=== PATIENT | female | born 1950 | race Caucasian/White ===

== ENCOUNTER → 2016-10-10 | Outpatient (CLI) | payer MEDICARE ==
--- NOTE | 2016-10-13 08:00 | MM ---
Reason for exam: screening (asymptomatic). Last mammogram was performed 3 years and 4 months ago. History: Patient is postmenopausal. Took hormonal contraceptives for 15 years beginning at age 20. Took estrogen for 7 years beginning at age 50. Physical Findings: A clinical breast exam by your physician is recommended on an annual basis and results should be correlated with mammographic findings. MG 3D Screening Mammo W/Cad Bilateral CC and MLO view(s) were taken. Prior study comparison: June 06, 2013, bilateral digital screening mammo w/CAD. March 17, 2012, [facility] DIGITAL RIGHT MAMMOGRAM w/CAD. The breast tissue is heterogeneously dense. This may lower the sensitivity of mammography. Finding: There are typically benign calcifications in both breasts. No significant changes in finding since June 06, 2013 and March 17, 2012. ASSESSMENT: Benign, BI-RAD 2 RECOMMENDATION: Routine screening mammogram of both breasts in 1 year.
== END | disposition home or self-care (01) ==
LOC: RADMAMWWP 12:53
PROVIDERS: ATTEND Family Medicine
DX: Z12.31 Encounter for screening mammogram for malignant neoplasm of breast (principal)
CPT/HCPCS: 77063; G0202

== ENCOUNTER → 2017-07-14 | Outpatient (CLI) | payer MEDICARE ==
--- NOTE | 2017-07-14 22:42 | BD ---
EXAMINATION TYPE: MG DEXA axial skeleton. DATE OF EXAM: 07/14/2017 COMPARISON: NONE CLINICAL HISTORY: 66-year-old female postmenopausal screening, osteoporosis Height: 62.7 IN Weight: 156 LBS FRAX RISK QUESTIONS: Alcohol (3 or more units per day): NO Family History (Parent hip fracture): NO Glucocorticoids (More than 3mos): NO (Ex: prednisone, prednisolone, methylprednisolone, dexamethasone, and hydrocortisone). History of Fracture in Adulthood: NO Secondary Osteoporosis: 1. Type 1 Diabetes: NO 2. Hyperthyroidism: NO 3. Menopause before 45: NO 4. Malnutrition: NO 5. Chronic liver disease: NO Rheumatoid Arthritis: NO Current Tobacco Use: NO RISK FACTORS HISTORY OF: Active: YES Postmenopausal woman: AGE 51 Take estrogen and/or progesterone medications: NOT NOW How long: TOOK ERT FROM AGE 51 - 53 MEDICATIONS: Additional Medications: CALCIUM, VIT D, ATENOLOL, ISOSORBIDE, LISINOPRIL, GABAPENTIN, ATORVASTATIN, C ITALOPRAM, LOW DOSE ASPIRIN, AREDS, EYE VITAMIN, FISH OIL, EXAM MEASUREMENTS: Bone mineral densitometry was performed using the [employer] System. Bone mineral density as measured about the Lumbar spine is: ----- L1-L4(G/cm2): 1.004 T Score Values are as follows: ----- L2: -1.6 ----- L3: -1.9 ----- L4: -0.4 ----- L1-L4: -1.5 Bone mineral density BASELINE Bone mineral density about the R hip (g/cm2): 0.649 Bone mineral density about the L hip (g/cm2): 0.741 T Score values are as follows: -----R Neck: -2.8 -----L Neck: -2.1 -----R Total: -2.1 -----L Total: -1.6 Bone mineral density BASELINE IMPRESSION: Osteoporosis (T Score less than -2.5). There is increased fracture risk and therapy is usually indicated based on age. Re-Screen 1-2 years. NOTE: T-SCORE=SD OF THE YOUNG ADULT MEAN.
== END | disposition home or self-care (01) ==
LOC: RADBDWWP 08:21
PROVIDERS: ATTEND Family Medicine
DX: M81.0 Age-related osteoporosis without current pathological fracture (principal)
CPT/HCPCS: 77080

== ENCOUNTER → 2017-12-10 | Outpatient (CLI) | payer MEDICARE ==
--- NOTE | 2017-12-10 15:41 | US ---
EXAMINATION TYPE: US kidneys/renal and bladder DATE OF EXAM: 12/10/2017 COMPARISON: NONE CLINICAL HISTORY: Hematuria R31.2. EXAM MEASUREMENTS: Right Kidney: 9.2 x 3.8 x 3.8 cm Left Kidney: 9.8 x 4.9 x 4.8 cm Post Void Residual Volume: 0.69 mL rt liver cysts 1.8 x 1.9 x 1.3 cm, 1.8 x 1.5 x1.6 cm rt inferior Right Kidney: No hydronephrosis or masses seen Left Kidney: large cyst 6.0 x 4.9 x 6.3 cm Bladder: wnl Bilateral Jets seen: Yes Normal Post Void Residual: Yes There is no evidence for hydronephrosis at this point in time. No nephrolithiasis is seen. No jacquie s are identified. The urinary bladder is poorly distended and left suboptimally evaluated. Bilatera l ureteral jets are seen. Technologist burgos a few simple appearing thin-walled cysts scattered throughout heterogeneous hypere choic probable diffuse fatty infiltrated liver. There is a large partially exophytic cyst from lower pole level left kidney IMPRESSION: No suspicious finding seen to account for patient's symptoms of hematuria. If symptoms persists furth er investigation with CT urogram would be advised.
== END | disposition home or self-care (01) ==
LOC: RADUSWWP 14:42
PROVIDERS: ATTEND Family Medicine
DX: R31.29 Other microscopic hematuria (principal)
CPT/HCPCS: 76770

== ENCOUNTER 2018-12-17 15:28 | Emergency (ER) | payer MEDICARE ==
[2018-12-17 15:37] VITALS: RESP 16; TEMP 98.1
--- NOTE | 2018-12-17 15:44 | ED ---
General Adult HPI - General Chief complaint: Syncope Stated complaint: Near Syncope Time Seen by Provider: 12/17/18 15:30 Source: patient, RN notes reviewed Mode of arrival: EMS Limitations: no limitations - History of Present Illness Initial comments: This is a 68-year-old female presents emergency Department after having had a diaphoretic and dizziness spell at home. Patient bent over and stay bent over for a while and then when she stood up she was nauseated so she went over and sat down and became very diaphoretic and felt a little lightheaded at that time. Patient denies any chest pain palpitations or difficulty breathing patient currently states she has no symptoms at all per patient denies any recent fever chills. Patient denies any abdominal pain. Patient denies any nausea vomiting diarrhea per patient states she had some good breakfast as well as some water. Patient states she hasn't had any lower extremityswellingor any calf tenderness - Related Data Home Medications Medication Instructions Recorded Confirmed Aspirin EC [Ecotrin Low Dose] 81 mg PO DAILY 12/17/18 12/17/18 Atorvastatin [Lipitor] 40 mg PO DAILY 12/17/18 12/17/18 Biotin 2,500 mcg PO DAILY 12/17/18 12/17/18 Calcium Carbonate [Calcium] 600 mg PO BID 12/17/18 12/17/18 Cholecalciferol (Vitamin D3) 2,000 unit PO DAILY 12/17/18 12/17/18 [Vitamin D3] Citalopram Hydrobromide [CeleXA] 40 mg PO DAILY 12/17/18 12/17/18 Ezetimibe [Zetia] 10 mg PO DAILY 12/17/18 12/17/18 Fluticasone Nasal [place] [Flonase 2 spr EA NOSTRIL DAILY 12/17/18 12/17/18 Nasal [place]] Gabapentin [Neurontin] 300 mg PO TID 12/17/18 12/17/18 Isosorbide Mononitrate ER [Imdur] 30 mg PO DAILY 12/17/18 12/17/18 Lisinopril [Zestril] 10 mg PO DAILY 12/17/18 12/17/18 Nitroglycerin Sl Tabs [Nitrostat] 0.4 mg SUBLINGUAL Q5M PRN 12/17/18 12/17/18 Salley-3 935mg 1 cap PO DAILY 12/17/18 12/17/18 Vit C/E/Zn/Coppr/Lutein/Zeaxan 1 cap PO BID 12/17/18 12/17/18 [Preservision Areds 2 Softgel] Allergies Allergy/AdvReac Type Severity Reaction Status Date / Time Penicillins Allergy Rash/Hives Verified 12/17/18 15:51 Review of Systems ROS Statement: Those systems with pertinent positive or pertinent negative responses have been documented in the HPI. ROS Other: All systems not noted in ROS Statement are negative. Past Medical History Past Medical History: Osteoarthritis (OA) Additional Past Medical History / Comment(s): aneurysm History of Any Multi-Drug Resistant Organisms: None Reported Past Surgical History: Orthopedic Surgery Additional Past Surgical History / Comment(s): L hand, L foot, Smoking Status: Never smoker Past Alcohol Use History: None Reported Past Drug Use History: Marijuana General Exam - General Exam Comments Initial Comments: GENERAL: Patient is well-developed and well-nourished. Patient is nontoxic and well-hyd rated and is in no acute distress. ENT: Neck is soft and supple. No significant lymphadenopathy is noted. Oropharynx is clear. Moist mucous membranes. Neck has full range of motion without elicit ing any pain. EYES: The sclera were anicteric and conjunctiva were pink and moist. Extraocular mo vements were intact and pupils were equal round and reactive to light. Eyelids were unremarkable. PULMONARY: Unlabored respirations. Good breath sounds bilaterally. No audible rales rhonchi or wheezing was noted. CARDIOVASCULAR: There is a regular rate and rhythm without any murmurs gallops or rubs. ABDOMEN: Soft and nontender with normal bowel sounds. No palpable organomegaly was noted. There is no palpable pulsatile mass. SKIN: Skin is clear with no lesions or rashes and otherwise unremarkable. NEUROLOGIC: Patient is alert and oriented x3. Cranial nerves II through XII are grossly intact. Motor and sensory are also intact. Normal speech, volume and content. Symmetrical smile. MUSCULOSKELETAL: Normal extremities with adequate strength and full range of motion. LYMPHATICS: No significant lymphadenopathy is noted PSYCHIATRIC: Normal psychiatric evaluation. Limitations: no limitations Course Vital Signs 12/17/18 12/17/18 15:29 15:40 Temperature 98.1 F Pulse Rate 80 Respiratory 16 Rate Blood Pressure 120/72 Blood Pressure 120/72 [Left Arm Sitting] Blood Pressure 109/74 [Left Arm Standing] Blood Pressure 97/69 [Left Arm Supine] O2 Sat by Pulse 97 Oximetry Medical Decision Making - Medical Decision Making EKG shows sinus rhythm with occasional PVC at [address] interval is 182 QRS is 8 6 QT interval is 418 QTC is 491. Patient's EKG shows no ST segment elevation or depression. CT shows no acute normalities. Patient had a liter of fluid while in the emergency department. Patient was able to ambulate emergency department not having any other symptoms. Patient states she has not passed bent over leg she did today and has had similar symptoms not as significant as today but similar. Patient states she feels fine and would like to be discharged home. - Lab Data Result diagrams: 12/17/18 15:50 12/17/18 15:50 Lab Results 12/17/18 12/17/18 12/17/18 Range/Units 15:50 15:50 15:50 WBC 10.1 (3.8-10.6) k/uL RBC 4.60 (3.80-5.40) m/uL Hgb 13.3 (11.4-16.0) gm/dL Hct 40.6 (34.0-46.0) % MCV 88.4 (80.0-100.0) fL MCH 28.8 (25.0-35.0) pg MCHC 32.6 (31.0-37.0) g/dL RDW 14.6 (11.5-15.5) % Plt Count 188 (150-450) k/uL Neutrophils % 61 % Lymphocytes % 30 % Monocytes % 5 % Eosinophils % 2 % Basophils % 1 % Neutrophils # 6.1 (1.3-7.7) k/uL Lymphocytes # 3.1 (1.0-4.8) k/uL Monocytes # 0.5 (0-1.0) k/uL Eosinophils # 0.2 (0-0.7) k/uL Basophils # 0.1 (0-0.2) k/uL PT 10.5 (9.0-12.0) sec INR 1.0 (<1.2) APTT 21.8 L (22.0-30.0) sec Sodium 140 (137-145) mmol/L Potassium 4.4 (3.5-5.1) mmol/L Chloride 105 (98-107) mmol/L Carbon Dioxide 27 (22-30) mmol/L Anion Gap 8 mmol/L BUN 16 (7-17) mg/dL Creatinine 0.92 (0.52-1.04) mg/dL Est GFR (CKD-EPI)AfAm 74 (>60 ml/min/1.73 sqM) Est GFR (CKD-EPI)NonAf 64 (>60 ml/min/1.73 sqM) Glucose 113 H (74-99) mg/dL Calcium 9.4 (8.4-10.2) mg/dL Magnesium 1.8 (1.6-2.3) mg/dL Total Bilirubin 0.6 (0.2-1.3) mg/dL AST 27 (14-36) U/L ALT 28 (9-52) U/L Alkaline Phosphatase 76 (38-126) U/L Troponin I (0.000-0.034) ng/mL Total Protein 6.4 (6.3-8.2) g/dL Albumin 4.2 (3.5-5.0) g/dL 12/17/18 Range/Units 15:50 WBC (3.8-10.6) k/uL RBC (3.80-5.40) m/uL Hgb (11.4-16.0) gm/dL Hct (34.0-46.0) % MCV (80.0-100.0) fL MCH (25.0-35.0) pg MCHC (31.0-37.0) g/dL RDW (11.5-15.5) % Plt Count (150-450) k/uL Neutrophils % % Lymphocytes % % Monocytes % % Eosinophils % % Basophils % % Neutrophils # (1.3-7.7) k/uL Lymphocytes # (1.0-4.8) k/uL Monocytes # (0-1.0) k/uL Eosinophils # (0-0.7) k/uL Basophils # (0-0.2) k/uL PT (9.0-12.0) sec INR (<1.2) APTT (22.0-30.0) sec Sodium (137-145) mmol/L Potassium (3.5-5.1) mmol/L Chloride (98-107) mmol/L Carbon Dioxide (22-30) mmol/L Anion Gap mmol/L BUN (7-17) mg/dL Creatinine (0.52-1.04) mg/dL Est GFR (CKD-EPI)AfAm (>60 ml/min/1.73 sqM) Est GFR (CKD-EPI)NonAf (>60 ml/min/1.73 sqM) Glucose (74-99) mg/dL Calcium (8.4-10.2) mg/dL Magnesium (1.6-2.3) mg/dL Total Bilirubin (0.2-1.3) mg/dL AST (14-36) U/L ALT (9-52) U/L Alkaline Phosphatase (38-126) U/L Troponin I <0.012 (0.000-0.034) ng/mL Total Protein (6.3-8.2) g/dL Albumin (3.5-5.0) g/dL Disposition Clinical Impression: Orthostatic dizziness Disposition: HOME SELF-CARE Condition: Good Instructions (If sedation given, give patient instructions): Hypotension (ED), Syncope (ED) Is patient prescribed a controlled substance at d/c from ED?: No Referrals: Alvarado Thompson DO [Primary Care Provider] - 1-2 days Time of Disposition: 17:33
[2018-12-17 16:11] LABS: Albumin 4.2 g/dL (3.5-5.0); Calcium 9.4 mg/dL (8.4-10.2); Magnesium 1.8 mg/dL (1.6-2.3); Potassium 4.4 mmol/L (3.5-5.1); Total Bilirubin 0.6 mg/dL (0.2-1.3); Total Protein 6.4 g/dL (6.3-8.2)
[2018-12-17 16:16] LABS: Prothrombin Time 10.5 sec (9.0-12.0)
[2018-12-17 16:30] LABS: Basophils # (A) 0.1 k/uL (0-0.2); Basophils % (A) 1 %; Eosinophils # (A) 0.2 k/uL (0-0.7); Eosinophils % (A) 2 %; HCT 40.6 % (34.0-46.0); HGB 13.3 gm/dL (11.4-16.0); Lymphocytes # (A) 3.1 k/uL (1.0-4.8); Lymphocytes % (A) 30 %; MCH 28.8 pg (25.0-35.0); MCHC 32.6 g/dL (31.0-37.0); MCV 88.4 fL (80.0-100.0); Mean Platelet Volume 8.3; Monocytes # (A) 0.5 k/uL (0-1.0); Monocytes % (A) 5 %; Neutrophils # (A) 6.1 k/uL (1.3-7.7); Neutrophils % (A) 61 %; Partial Thromboplastin Time 21.8 sec (22.0-30.0); Platelet Count 188 k/uL (150-450); RDW 14.6 % (11.5-15.5); WBC 10.1 k/uL (3.8-10.6)
--- NOTE | 2018-12-17 16:53 | XR ---
EXAMINATION TYPE: XR chest 2V DATE OF EXAM: 12/17/2018 COMPARISON: NONE HISTORY: Chest pain TECHNIQUE: Frontal and lateral views of the chest are obtained. FINDINGS: There is no focal air space opacity, pleural effusion, or pneumothorax seen. The cardiac silhouette size is within normal limits. The osseous structures are intact. There are overlying car diac leads. There is eventration of right hemidiaphragm. Prominent lung volumes could be indicative o f underlying COPD. IMPRESSION: No acute cardiopulmonary process.
[2018-12-17 17:45] VITALS: BP 101/66; PULSE 74
== END 2018-12-17 17:59 | disposition home or self-care (01) ==
LOC: EC 15:28
DX: R42 Dizziness and giddiness (principal); I49.3 Ventricular premature depolarization; M19.90 Unspecified osteoarthritis, unspecified site; Z88.0 Allergy status to penicillin; Z79.51 Long term (current) use of inhaled steroids; Z79.82 Long term (current) use of aspirin; Z79.899 Other long term (current) drug therapy
CPT/HCPCS: 36415; 71046; 80053; 83735; 84484; 85025; 85610; 85730; 93005; 99284

== ENCOUNTER → 2019-01-05 | Outpatient (CLI) | payer MEDICARE ==
--- NOTE | 2019-01-05 15:40 | MR ---
EXAMINATION TYPE: MR angio head wo con DATE OF EXAM: 01/05/2019 COMPARISON: MRA dated 02/19/2015 HISTORY: Cerebral aneurysm, nonruptured TECHNIQUE: Time of flight images focusing on the [place] of [place] were performed without contrast.. 2-D and 3-D postprocessing imaging is performed. FINDINGS: The basilar artery is enlarged measuring 5 mm, greater than 4.5 cm qualifies for dolichoect dylan. The vertebral arteries are codominant. Vertebrobasilar system does appear patent. The posterior cerebral arteries originate from the basilar artery appropriately and are unremarkable. Small regional planner ior communicating arteries are seen however the intercommunicating artery is not seen and therefore c ircle of [place] remains incomplete. There are 2 right anterior cerebral artery and a dominant left an terior cerebral artery, normal variant. The cervical portions of the internal carotid arteries appear patent with minimal nonhemodynamically significant stenosis of the right supraclinoid portion of the internal carotid artery. No hemodynamically significant stenosis is seen in the major intracranial v asculature nor focal aneurysmal outpouching. Unchanged prominent infundibulum of the origin of the le ft superior cerebellar artery in comparison to thousand 5. IMPRESSION: 1. 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 2. Stable prominent infundibulum of the origin of the left superior cerebellar artery.
== END ==
LOC: RADMRIMAIN 12:39
PROVIDERS: ATTEND Psychiatry & Neurology Neurology
DX: G45.0 Vertebro-basilar artery syndrome (principal)
CPT/HCPCS: 70544

== ENCOUNTER → 2019-01-05 | Outpatient (CLI) | payer MEDICARE ==
--- NOTE | 2019-01-06 13:27 | MM ---
Reason for exam: screening (asymptomatic). Last mammogram was performed 2 years and 3 months ago. History: Patient is postmenopausal. Took hormonal contraceptives for 15 years beginning at age 20. Took estrogen for 7 years beginning at age 50. Physical Findings: A clinical breast exam by your physician is recommended on an annual basis and results should be correlated with mammographic findings. MG 3D Screening Mammo W/Cad Bilateral CC and MLO view(s) were taken. Prior study comparison: October 10, 2016, bilateral MG 3d screening mammo w/cad. June 06, 2013, bilateral digital screening mammo w/CAD. The breast tissue is heterogeneously dense. This may lower the sensitivity of mammography. Stable benign calcifications. There is no discrete abnormality. No significant changes when compared with prior studies. ASSESSMENT: Benign, BI-RAD 2 RECOMMENDATION: Routine screening mammogram of both breasts in 1 year.
== END | disposition home or self-care (01) ==
LOC: RADMAMWWP 12:09
PROVIDERS: ATTEND Family Medicine
DX: Z12.31 Encounter for screening mammogram for malignant neoplasm of breast (principal)
CPT/HCPCS: 77063; 77067

== ENCOUNTER → 2019-10-27 | Outpatient (CLI) | payer MEDICARE ==
--- NOTE | 2019-10-27 13:37 | BD ---
EXAMINATION TYPE: Axial Bone Density DATE OF EXAM: 10/27/2019 COMPARISON: 07.14.2017 CLINICAL HISTORY: 69 YR OLD FEMALE.....ICD-10 CODE: M81.0 AGE RELATED OSTEOPOROSIS Height: 62 Weight: 155 FRAX RISK QUESTIONS: Glucocorticoids (More than 3mos): YES (Ex: prednisone, prednisolone, methylprednisolone, dexamethasone, and hydrocortisone). History of Fracture in Adulthood: YES RISK FACTORS HISTORY OF: HX OF RT ANKLE FX LAST YR AT AGE 68 Active: YES Postmenopausal woman: YES, ABOUT AGE 52 YRS OLD Take estrogen and/or progesterone medications: IN PAST FOR ABOUT 2 YRS, NONE NOW Hyperparathyroidism: NO Adrenal Insufficiency: NO MEDICATIONS: Prednisone or other steroids: YES, ALBUTEROL AND STEROIDAL INHALERS FOR COPD How Long: FOR 6 MONTHS Osteoporosis Medications: YES, FOR ONLY 3 MOS, NOT NOW, FOSAMAX Additional Medications: BP MEDS, CELEXA, REFLUX MEDS, CHOLESTEROL MEDS, CALCIUM AND VIT D Additional History: CHOLESTEROL, REFLUX OSTEOPOROSIS, OSTEOARTHRITIS, EXAM MEASUREMENTS: Bone mineral densitometry was performed using the [employer] System. Bone mineral density as measured about the Lumbar spine is: ----- L1-L4(G/cm2): 1.090 T Score Values are as follows: ----- L1: -1.6 ----- L2: -1.5 ----- L3: -1.1 ----- L4: 0.7 ----- L1-L4: -0.7 Bone mineral density has: Increased 8.0% since study of: 07.14.2017 Bone mineral density about the R hip (g/cm2): 0.759 Bone mineral density about the L hip (g/cm2): 0.804 T Score values are as follows: -----R Neck: -2.7 -----L Neck: -2.2 -----R Total: -2.0 -----L Total: -1.6 Bone mineral density has: Increased 1.2% since study of: 07.14.2017 FRAX%s: THERE IS A 37.5% CHANCE FOR A MAJOR OSTEOPOROTIC FX AND A 12.3% FOR HIP.....PROBABILITY FOR FX IN 10 YRS TIME IMPRESSION: Osteoporosis Right femoral neck NOTE: T-SCORE=SD OF THE YOUNG ADULT MEAN.
== END | disposition home or self-care (01) ==
LOC: RADBDWWP 12:26
PROVIDERS: ATTEND Family Medicine
DX: M81.0 Age-related osteoporosis without current pathological fracture (principal)
CPT/HCPCS: 77080

== ENCOUNTER → 2020-08-21 | Outpatient (CLI) | payer MEDICARE ==
--- NOTE | 2020-08-21 22:39 | MR ---
EXAMINATION TYPE: MR angio head wo con DATE OF EXAM: 08/21/2020 COMPARISON: MRA brain January 05, 2019 HISTORY: Follow up comparison for non-ruptured cerebral aneurysm. TECHNIQUE: Time of flight images focusing on the [place] of [place] were performed without contrast.. 2-D and 3-D postprocessing imaging is performed on independent workstation and reviewed. FINDINGS: Stable codominant vertebrobasilar system patent to the basilar junction. Prominent patent b asilar artery redemonstrated at origin. Tortuous course to the posterior circulation redemonstrated. Small caliber but patent bilateral posterior communicating arteries. No significant focal stenosis or aneurysmal change. Persistent two small caliber anterior cerebral arteries with patent anterior communicating artery and larger dominant left anterior cerebral artery. No significant focal stenosis or aneurysmal change in the anterior circulation. IMPRESSION: Stable focal prominence or dolichoectasia of the proximal basilar artery. New aneurysm or significant stenosis. No significant change from prior.
== END | disposition home or self-care (01) ==
LOC: RADMRIMAIN 15:53
PROVIDERS: ATTEND Psychiatry & Neurology Neurology
DX: I67.1 Cerebral aneurysm, nonruptured (principal)
CPT/HCPCS: 70544

== ENCOUNTER → 2021-01-02 | Outpatient (CLI) | payer MEDICARE ==
--- NOTE | 2021-01-03 11:00 | MM ---
Reason for exam: screening (asymptomatic). Last mammogram was performed 2 years ago. History: Patient is postmenopausal. Took hormonal contraceptives for 15 years beginning at age 20. Took estrogen for 7 years beginning at age 50. Physical Findings: A clinical breast exam by your physician is recommended on an annual basis and results should be correlated with mammographic findings. MG 3D Screening Mammo W/Cad Bilateral CC and MLO view(s) were taken. Prior study comparison: January 05, 2019, bilateral MG 3d screening mammo w/cad. October 10, 2016, bilateral MG 3d screening mammo w/cad. The breast tissue is heterogeneously dense. This may lower the sensitivity of mammography. There are benign appearing round dystrophic calcifications bilaterally. There is no discrete abnormality. ASSESSMENT: Benign, BI-RAD 2 RECOMMENDATION: Routine screening mammogram of both breasts in 1 year.
== END | disposition home or self-care (01) ==
LOC: RADMAMWWP 10:12
PROVIDERS: ATTEND Family Medicine
DX: Z12.31 Encounter for screening mammogram for malignant neoplasm of breast (principal)
CPT/HCPCS: 77063; 77067

== ENCOUNTER → 2021-10-01 | Outpatient (CLI) | payer MEDICARE ==
--- NOTE | 2021-10-01 13:19 | MR ---
EXAMINATION TYPE: MR knee RT wo con DATE OF EXAM: 10/01/2021 COMPARISON: Outside radiographs 09/12/2019 oh HISTORY: 70-year-old female M25.561, Right knee pain and painful kneecap since 2021, history of surgery. TECHNIQUE: Multiplanar, multisequence imaging of the right knee is performed without IV contrast. FINDINGS: The ACL and PCL are intact. MCL is intact. LCL complex is intact. Mild soft tissue edema deep to the distal iliotibial band. There is a diminutive body and posterior horn of the medial meniscus. Mild irregular cartilage loss w ithin the mid peripheral aspect of the medial compartment and mild degenerative spurring. Lateral meniscus is intact. Lateral compartment articular cartilage volume is maintained. Moderate irregular cartilage loss along the lateral trochlear facet. Extensor mechanism is intact. Inhomogeneous signal is present at the insertional fibers. Quadriceps a nd proximal patellar tendon as well. Small knee joint effusion without any sizable Roblero's cyst. Trace fluid extends here. Mild fluid along the pes anserinus tendons. Additional fluid seen extending along the popliteus tendon sheath. Mild edema lateral head gastrocnemius. Irregular low signal intensity lesion within the intramedullary space of the distal femoral metaphysi s. Some Marlene ink artifact is present, this could represent a chondroid lesion or focus of old bone i nfarct. No soft tissue component or cortical erosion. Normal popliteal artery anatomy. Mild generalized muscle volume loss. No suspicious bone marrow repla cement. IMPRESSION: 1. Diminutive body and posterior horn of the medial meniscus. Correlate for history of prior partial medial meniscectomy. 2. Mild degenerative change of the medial compartment. More moderate thickness cartilage loss along t he lateral patellar facet within the patellofemoral compartment. 3. Mild proximal patellar tendinosis and mild insertional quadriceps tendinosis. 4. Some soft tissue edema deep to the distal iliotibial band could represent a friction syndrome. Cli nically correlate for any localizing symptoms here. 5. Either a chondroid lesion or old bone infarct within the distal femoral metaphysis. No aggressive features seen at this time.
== END | disposition home or self-care (01) ==
LOC: RADMRIMAIN 10:30
PROVIDERS: ATTEND Orthopaedic Surgery
DX: M25.561 Pain in right knee (principal)

== ENCOUNTER 2021-12-12 09:50 | Day surgery (SDC) | payer MEDICARE ==
[2021-12-09 14:11] VITALS: BMI 27.1
--- NOTE | 2021-12-12 08:34 | HP ---
HISTORY AND PHYSICAL DATE OF SURGERY: 12/12/2021 Zahida Thomas is a 71-year-old patient seen with progressive right knee pain. Options for treatment were discussed. She elected to proceed with right knee arthroscopy. Consent was obtained. PAST MEDICAL HISTORY: Hypertension, hyperlipidemia, asthma. PAST SURGICAL HISTORY: Excision of soft tissue mass in forearm and wrist, knee arthroscopy. DAILY MEDICATIONS: Albuterol inhaler, aspirin, atorvastatin, metoprolol, omeprazole, Spiriva. ALLERGIES: None. SOCIAL HISTORY: She denies tobacco use. PHYSICAL EVALUATION OF THE RIGHT KNEE: Range of motion is 0 to 130. Mild effusion. Tenderness along the medial and lateral joint lines. Positive medial Alvaro's. Ligaments stable. Hip rotation without pain. Distal neurovascular exam is intact. RADIOGRAPHS: Radiographs of the right knee reveal some osteoarthritic changes. MRI of right knee revealed abnormal signal in the medial meniscus, effusion, osteoarthritic changes. IMPRESSION: 1. Internal derangement of right knee with medial meniscal tear. 2. Hypertension. 3. Hyperlipidemia. 4. Asthma. PLAN: Right knee arthroscopy with partial medial meniscectomy and debridement. MMODL / IJN: [id number] /
[~2021-12-12 09:50] MED LIST: DEXAMETHASONE SOD PHOSPHATE 4 MG/ML 1 ML VIAL IV ONE; HYDROmorphone 0.5 MG/0.5 ML SYRINGE IVP PRN; LACTATED RINGERS 1,000 ML IV SCH; LIDOCAINE 1% (10MG/ML) FOR IV START INTRADERMA PRN; ONDANSETRON 4 MG/2 ML VIAL IVP PRN
[2021-12-12] MEDS ORDERED: KETOROLAC 15 MG/ML 1 ML VIAL ONE (12:07)
[2021-12-12] MEDS ORDERED: MIDAZOLAM 2 MG/2 ML VIAL ONE (12:07)
[2021-12-12] MEDS ORDERED: PHENYLEPHRINE-0.9% NACL SYG 1,000 MCG/10 ML SYRINGE ONE (12:07)
[2021-12-12] MEDS ORDERED: fentaNYL (PF) 50 MCG/ML 2 ML AMP ONE (12:07)
[2021-12-12] MEDS ORDERED: LIDOCAINE 2% INJ 20 MG/ML (2 ML VIAL) ONE (12:07)
[2021-12-12] MEDS ORDERED: PROPOFOL 10 MG/ML 20 ML VIAL IV ONE (12:07)
[2021-12-12] MEDS ORDERED: BUPIVACAIN-EPI 0.25%-1:200,000 30 ML VIAL INTRAARTIC ONE (12:08)
[2021-12-12 12:56] VITALS: RESP 16; TEMP 96.8
--- NOTE | 2021-12-12 12:57 | P.OP ---
Date of Procedure: 12/12/21 Preoperative Diagnosis: Internal derangement right knee Postoperative Diagnosis: 1. Tear medial and lateral meniscus right knee 2. Grade 2 chondromalacia medial femoral condyle right knee 3. Reactive synovitis medial, lateral and suprapatellar compartments right knee Procedure(s) Performed: 1. Arthroscopic partial medial and lateral meniscectomy right knee 2. Arthroscopic chondroplasty medial femoral condyle right knee 3. Arthroscopic partial synovectomy medial, lateral and suprapatellar compartments right knee Anesthesia: BAOA, local Surgeon: Jose C Shannon Estimated Blood Loss (ml): 7 Pathology: none sent Condition: stable Disposition: PACU Indications for Procedure: 71-year-old patient seen with progressive right knee pain. After treatment options were discussed, she elected to proceed with arthroscopy. Operative Findings: See description of procedure Description of Procedure: Patient was taken to the operative suite. Patient underwent a general anesthetic by the department of anesthesia. Patient was given preoperative antibiotics. The right lower extremity was placed in a well-padded arthroscopic leg lloyd. The right leg was prepped and draped in the normal sterile orthopedic fashion. A lateral parapatellar and suprapatellar incision was made. Trochars were inserted. Arthroscopy was initiated. Suprapatellar pouch revealed diffuse thick reactive synovitis. The patellofemoral joint appeared to articulate congruently. There was grade 1 chondromalacia of the patellofemoral joint with no osteochondral tears present.. The scope was guided into the medial gutter. No loose bodies or plica were identified. The scope was then guided into the medial compartment. A medial parapatellar incision was made. Trocar inserted followed by probe. There was a complex tear involving the posterior horn and midbody area of the medial meniscus. There were grade 2 chondromalacia changes of medial femoral condyle with osteochondral flap tear present. There was some thick reactive some-itis anteriorly. I performed a partial medial meniscectomy getting down to stable meniscal tissue. I performed a chondroplasty of the medial femoral condyle getting down to stable osteochondral tissue. I performed a partial synovectomy decompressing the reactive/anteriorly. The residual meniscus was stable. The residual osteochondral surface appears stable. There was good decompression of the synovitis. Scope and probe were then guided into the intercondylar notch. Cruciates were identified, probed and found to be stable. The scope and probe were then guided into lateral compartment. There was a radial tear anterior horn lateral meniscus. There was some thick reactive synovitis anteriorly. There was no chondromalacia. I performed a partial lateral meniscectomy getting down to stable meniscal tissue. I performed a partial synovectomy. The residual meniscus was stable. The residual osteochondral surface was stable. The scope was in guided back into the suprapatellar compartment. I introduced a motorized shaver into the suprapatellar compartment. I debrided some piecemeal fragments of meniscus I encountered. I performed a partial synovectomy. The shaver was now removed. There was good decompression of the synovitis. I took one more look around the entire knee, no residual debris. Instruments were now removed from the joint. The joint was infiltrated with .25% Marcaine. Steri- Strips were applied to the portal sites. Sterile dressings were applied. The patient was placed into a BIA hose. No tourniquet was utilized. The patient was awakened, transferred to a bed and taken to recovery stable satisfactory condition.
[2021-12-12 14:33] VITALS: BP 129/81; PULSE 69
== END 2021-12-12 14:36 | disposition home or self-care (01) ==
LOC: OR 09:50
PROVIDERS: ATTEND Orthopaedic Surgery
DX: M23.203 Derangement of unspecified medial meniscus due to old tear or injury, right knee (principal); M23.200 Derangement of unspecified lateral meniscus due to old tear or injury, right knee; I10 Essential (primary) hypertension; E78.5 Hyperlipidemia, unspecified; J44.9 Chronic obstructive pulmonary disease, unspecified; K21.9 Gastro-esophageal reflux disease without esophagitis; J45.909 Unspecified asthma, uncomplicated; Z98.890 Other specified postprocedural states; Z79.82 Long term (current) use of aspirin; Z79.899 Other long term (current) drug therapy; Z88.5 Allergy status to narcotic agent; Z88.0 Allergy status to penicillin
CPT/HCPCS: 29880; J2250; J1100; J2405; J0690; J3010; J1885; J2370; J2704; J1170; J2001

== ENCOUNTER → 2022-01-08 | Outpatient (CLI) | payer MEDICARE ==
--- NOTE | 2022-01-10 07:54 | XR ---
EXAMINATION TYPE: XR thoracic spine complete DATE OF EXAM: 01/08/2022 CLINICAL HISTORY: pain TECHNIQUE: Frontal, lateral, and swimmer's view of thoracic spine are obtained. COMPARISON: None. FINDINGS: Thoracic spine show satisfactory alignment without evidence of acute fracture or dislocatio n. Vertebral body heights are preserved. Mild curvature convex to the right. A moderate multilevel d egenerative disc space narrowing and spondylosis. Visualized ribs are unremarkable. IMPRESSION: No acute fracture or dislocation is seen in the thoracic spine. ICD 10 NO FRACTURE, INIT IAL EVALUATION
== END | disposition home or self-care (01) ==
LOC: RADXRMAIN 13:25
PROVIDERS: ATTEND Family Medicine
DX: M54.6 Pain in thoracic spine (principal)
CPT/HCPCS: 72072

== ENCOUNTER → 2022-01-08 | Outpatient (CLI) | payer MEDICARE ==
--- NOTE | 2022-01-09 19:23 | BD ---
EXAMINATION TYPE: Axial Bone Density DATE OF EXAM: 01/08/2022 CLINICAL HISTORY: 71 year old Female. ICD-10 CODE: M81.0 AGE RELATED OSTEOPOROSIS Height: 63 Weight: 154.8 FRAX RISK QUESTIONS: Alcohol (3 or more units per day): no Family History (Parent hip fracture): no Glucocorticoids (More than 3mos): no (Ex: prednisone, prednisolone, methylprednisolone, dexamethasone, and hydrocortisone). History of Fracture in Adulthood:yes Secondary Osteoporosis: 1. Type 1 Diabetes: no 2. Hyperthyroidism: no 3. Menopause before 45: no 4. Malnutrition: no 5. Chronic liver disease: no Rheumatoid Arthritis: no Current Tobacco Use: no RISK FACTORS HISTORY OF: Surgery to Spine/Hip(right/left)/Wrist (right/left): no Family History of Osteoporosis: no Active: yes Diet low in dairy products/other sources of calcium: yes Postmenopausal woman: yes Lost more than 2 inches in height since high school: no MEDICATIONS: Additional History: EXAM MEASUREMENTS: Bone mineral densitometry was performed using the [employer]. Bone mineral density as measured about the Lumbar spine is: ----- L1-L4(G/cm2): 1.012 T Score Values are as follows: ----- L1: -2.1 ----- L2: -1.3 ----- L3: -1.9 ----- L4: -0.6 ----- L1-L4: -1.4 Bone mineral density has: increased 0.5 % since study of: 07.14.2017 Bone mineral density about the R hip (g/cm2): 0.628 Bone mineral density about the L hip (g/cm2): 0.731 T Score values are as follows: -----R Neck: -3.0 -----L Neck: -2.2 -----R Total: -2.3 -----L Total: -1.7 Bone mineral density has: decreased -2.2% since study of: 07.14.2017 FRAX%s: The graph provided illustrates a 28.4% chance for a major osteoporotic fx and a 9.4% chance f or the hips probability for fx in 10 years time. IMPRESSION: Osteoporosis (T Score less than -2.5). There is increased fracture risk and therapy is usually indicated based on age. Re-Screen 1-2 years. NOTE: T-SCORE=SD OF THE YOUNG ADULT MEAN.
== END | disposition home or self-care (01) ==
LOC: RADBDWWP 12:49
PROVIDERS: ATTEND Family Medicine
DX: M81.0 Age-related osteoporosis without current pathological fracture (principal)
CPT/HCPCS: 77080

== ENCOUNTER → 2022-02-06 | Outpatient (CLI) | payer MEDICARE ==
--- NOTE | 2022-02-06 13:41 | MR ---
EXAMINATION TYPE: MR cervical spine wo con DATE OF EXAM: 02/06/2022 COMPARISON: None HISTORY: Neck pain with crunching sounds x6 months TECHNIQUE: Multiplanar, multisequence images of the cervical spine were acquired without contrast. FINDINGS: Cervical segments are intact. No spinal listhesis. Slight reversal of normal cervical lordosis. Cervi boby spinal cord is of normal signal. Craniovertebral junction relationships are within normal limits . Multilevel disc desiccation. C2-C3: No disc bulge/herniation or protrusion. No Canal stenosis. Foramina are patent bilaterally. C3-C4: No disc bulge/herniation or protrusion. No Canal stenosis. Foramina are patent bilaterally. C4-C5: No disc bulge/herniation or protrusion. No Canal stenosis. Uncovertebral joint hypertrophy wi th mild left neural foraminal stenosis. The right neural foramen is patent. C5-C6: No disc bulge/herniation or protrusion. No Canal stenosis. Uncovertebral and facet joint hype rtrophy with moderate left neural foraminal stenosis. The right neural foramen is patent. C6-C7: No disc bulge/herniation or protrusion. No Canal stenosis. Uncovertebral and facet joint hype rtrophy with moderate bilateral foraminal stenosis. C7-T1: No disc bulge/herniation or protrusion. No Canal stenosis. Foramina are patent bilaterally. IMPRESSION: 1. No disc herniation or central significant central canal stenosis. 2. Multilevel degenerative disc disease as described above.
== END | disposition home or self-care (01) ==
LOC: RADMRIMAIN 12:21
PROVIDERS: ATTEND Psychiatry & Neurology Neurology
DX: M50.30 Other cervical disc degeneration, unspecified cervical region (principal)
CPT/HCPCS: 72141

== ENCOUNTER → 2022-04-18 | Outpatient (CLI) | payer MEDICARE ==
--- NOTE | 2022-04-19 09:14 | MR ---
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 TECHNIQUE: Multi planar, multi sequence imaging was performed through the brain including: T1, T2, In version recovery, susceptibility weighted imaging and gradient echo imaging and Diffusion weighted im aging. The patient was then given intravenous contrast and multi planar, T1 fat-saturation images wer e obtained. IV Contrast: 7 cc of Gadavist FINDINGS: The ace-white junctions, ventricular system, basal cisterns appear unremarkable. Diffusion-weighted imaging shows no evidence of restricted diffusion to suggest acute/subacute infarct. Intracranial art erial flow voids are maintained. Midline structures show no abnormality. Scattered foci of high T2 si gnal intensity are seen within the periventricular white matter. The susceptibility weighted images d o not reveal any evidence for micro-hemorrhage. After administration of gadolinium, no abnormal enhan cement is seen. Dolichoectasia of the basilar artery measuring similarly at 5 mm. Limited evaluation for aneurysm mahajan s not demonstrate any new aneurysms on today's exam. The bone marrow signal is within normal limits. Paranasal sinuses and mastoid air cells: Mild scattered paranasal sinus disease. Visualized orbits: Orbital contents are intact. IMPRESSION: 1. No evidence of intracranial mass, acute/subacute infarct, or abnormal enhancement. 2. Nonspecific white matter changes, likely related to small vessel ischemic disease 3. Stable Dolichoectasia of the basilar artery. 4. No new aneurysm identified.
== END | disposition home or self-care (01) ==
LOC: RADMRIMAIN 10:15
PROVIDERS: ATTEND Psychiatry & Neurology Neurology
DX: I67.1 Cerebral aneurysm, nonruptured (principal); G45.0 Vertebro-basilar artery syndrome; R90.82 White matter disease, unspecified; R20.2 Paresthesia of skin; R51.9 Headache, unspecified; R29.2 Abnormal reflex; R53.1 Weakness
CPT/HCPCS: 70553; A9585

== ENCOUNTER → 2022-05-01 | Outpatient (CLI) | payer MEDICARE ==
--- NOTE | 2022-05-01 16:22 | US ---
EXAMINATION TYPE: US carotid duplex BILAT DATE OF EXAM: 05/01/2022 COMPARISON: NONE CLINICAL HISTORY: R42 Dizziness R51.9 Headache M54.2 Cervicalgia. neck pain TECHNIQUE: Carotid duplex ultrasound examination. Indirect Doppler criteria was utilized. FINDINGS: EXAM MEASUREMENTS: RIGHT: Peak Systolic Velocity (PSV) cm/sec ----- Right CCA: 63.4 ----- Right ICA: 91 ----- Right ECA: 93.9 ICA/CCA ratio: 1.4 RIGHT: End Diastole cm/sec ----- Right CCA: 21.2 ----- Right ICA: 35.7 ----- Right ECA: 8.1 LEFT: Peak Systolic Velocity (PSV) cm/sec ----- Left CCA: 69.2 ----- Left ICA: 91 ----- Left ECA: 70.6 ICA/CCA ratio: 1.3 LEFT: End Diastole cm/sec ----- Left CCA: 21.2 ----- Left ICA: 38.7 ----- Left ECA: 0 VERTEBRALS (direction of flow): Right Vertebral: Antegrade Left Vertebral: Antegrade Rhythm: Normal INCOME TAX MANAGER NOTES: No significant stenosis seen Minimal plaquing is present. IMPRESSION: 1. No significant flow-limiting stenosis by velocity Criteria for Assigning % of Stenosis / Diameter reduction (Estimation based on the indirect measurements of the internal carotid artery velocities (ICA PSV). 1. Normal (no stenosis)=ICA PSV < 125 cm/s: ratio < 2.0: ICA EDV<40 cm/s. 2. Less than 50% stenosis=ICA PSV < 125 cm/s: ratio < 2.0: ICA EDV<40 cm/s. 3. 50 to 69% stenosis=ICA PSV of 125 to 230 cm/s: ration 2.0 ? 4.0: ICA EDV 40-100 cm/s. 4. Greater than 70% stenosis to near occlusion= ICA PSV > 230 cm/s: ratio > 4.0: ICA EDV > 100 cm/s. 5. Near occlusion= ICA PSV velocities may be low or undetectable: variable ratio and ICA EDV. 6. Total occlusion=unable to detect flow.
== END | disposition home or self-care (01) ==
LOC: RADUSWWP 13:02
PROVIDERS: ATTEND Family Medicine
DX: R42 Dizziness and giddiness (principal); R51.9 Headache, unspecified; M54.2 Cervicalgia
CPT/HCPCS: 93880

== ENCOUNTER → 2023-09-11 | Outpatient (CLI) | payer MEDICARE ==
--- NOTE | 2023-09-14 15:04 | MM ---
Reason for Exam: Screening (asymptomatic). Last mammogram was performed 2 year(s) and 8 month(s) ago. Patient History: Menarche at age 14. First Full-Term at age 18. Postmenopausal. Estrogen for 7 years from age 50 until age 57. Hormonal Contraceptives for 15 years from age 20 until age 35. Risk Values: [place] 5 year model risk: 1.2%. NCI Lifetime model risk: 3.0%. Prior Study Comparison: 10/10/2016 Bilateral Screening Mammogram, [facility]. 01/05/2019 Bilateral Screening Mammogram, [facility]. 01/02/2021 Bilateral Screening Mammogram, [facility]. Tissue Density: There are scattered areas of fibroglandular density. Findings: Analyzed By CAD. Right breast: There is no suspicious group of microcalcifications or new suspicious mass. Benign-appearing calcifications right breast. Left breast: There is no suspicious group of microcalcifications or new suspicious mass. Benign-appearing calcifications left breast. Overall Assessment: Benign, BI-RAD 2 Management: Screening Mammogram of both breasts in [address] [facility] will attempt to contact patient to return for supplemental views and ultrasound if indicated. Patient should continue monthly self-breast exams. A clinical breast exam by your physician is recommended on an annual basis. This exam should not preclude additional follow-up of suspicious palpable abnormalities. Note on Kamilah scores and lifetime risk: 1. A Kamilah score greater than 3% is considered moderate risk. If this is the case, consider specialist referral to assess eligibility for a risk reducing agent. 2. If overall lifetime risk for the development of breast cancer is 20% or higher, the patient may qualify for future screening with alternating mammogram and breast MRI. Electronically signed and approved by: Prosper Perez DO
== END | disposition home or self-care (01) ==
LOC: RADMAMWWP 09:54
PROVIDERS: ATTEND Family Medicine
DX: Z12.31 Encounter for screening mammogram for malignant neoplasm of breast (principal); Z78.0 Asymptomatic menopausal state
CPT/HCPCS: 77063; 77067

== ENCOUNTER → 2024-03-17 | Outpatient (CLI) | payer MEDICARE ==
--- NOTE | 2024-03-20 18:21 | MR ---
EXAMINATION TYPE: MRI left foot without IV contrast DATE OF EXAM: 03/17/2024 COMPARISON: None HISTORY: Palpable lump on left foot, at base of first toe. Standard multiplanar, multisequence MRI departmental protocol Multiplanar, multisequence images of the left foot were acquired without contrast. Diffusion weighted imaging was performed. FINDINGS: Negative for acute fracture or marrow replacement. Moderate osteoarthritis at the first MTP joint including chondral loss, marginal osteophytes and subc ortical cysts. Severe degenerative changes of the sesamoid bones also noted. Bipartite medial hallux sesamoid. Small first MTP joint effusion. Moderate hallux valgus. No discrete soft tissue mass. Musculature is within normal limits. Mild/moderate tenosynovitis involving the peroneus longus tendon as well as at the knot of James. Sca ttered soft tissue edema about the midfoot, greatest along the plantar aspect. IMPRESSION: 1. No discrete mass. If there is persistent clinical concern, consider contrast-enhanced MRI. 2. Moderate first MTP joint osteoarthritis with hallux valgus deformity. Severe arthritic changes of the first metatarsal sesamoid joints. 3. Incidental findings as above. [facility], Workstation: [id number], 03/20/2024 6:19 PM
== END | disposition home or self-care (01) ==
LOC: RADMRIMAIN 11:23
PROVIDERS: ATTEND Podiatrist Foot & Ankle Surgery
DX: M19.272 Secondary osteoarthritis, left ankle and foot (principal); M79.89 Other specified soft tissue disorders; M19.072 Primary osteoarthritis, left ankle and foot

== ENCOUNTER 2024-03-18 15:46 | Observation (INO) | payer MEDICARE ==
--- NOTE | 2024-03-18 17:44 | XR ---
EXAMINATION TYPE: XR Hip RT and AP Pelvis DATE OF EXAM: 03/18/2024 4:52 PM COMPARISON: None. CLINICAL INDICATION: Female, 73 years old with history of fall, TECHNIQUE: 2 view(s) obtained. AP pelvis FINDINGS: Femoral heads articulate with the acetabulum. Joint spaces are preserved. Symphysis pubis and sacroil iac joints are normal. Right femoral head articulates with the acetabulum. Joint space is preserved. No acute fracture or di slocation evident. IMPRESSION: 1. No acute osseous abnormality right hip [facility], , 03/18/2024 5:42 PM
--- NOTE | 2024-03-18 18:17 | ED ---
Lower Extremity Injury HPI - General Chief Complaint: Extremity Injury, Lower Stated Complaint: Hip injury, Fall Time Seen by Provider: 03/18/24 16:10 Source: patient Mode of arrival: ambulatory Limitations: no limitations - History of Present Illness Initial Comments: 73-year-old female presenting with chief complaint of right hip pain. Patient slipped on her deck earlier today and fell onto her right hip. No head injury, loss of consciousness, or use of blood thinners. Patient has good range of motion still but with certain movements has increased pain. She also has increased pain with weightbearing. She has history of osteoporosis. No numbne ss or tingling. - Related Data Home Medications Medication Instructions Recorded Confirmed Aspirin EC [Ecotrin Low Dose] 81 mg PO DAILY 12/17/18 12/12/21 Atorvastatin [Lipitor] 40 mg PO DAILY 12/17/18 12/12/21 Biotin [Biotin Disolve] 2,500 mcg PO DAILY 12/17/18 12/12/21 Calcium Carbonate [Calcium] 600 mg PO BID 12/17/18 12/12/21 Cholecalciferol (Vitamin D3) 2,000 unit PO DAILY 12/17/18 12/12/21 [Vitamin D3] Citalopram Hydrobromide [CeleXA] 40 mg PO DAILY 12/17/18 12/12/21 Ezetimibe [Zetia] 10 mg PO DAILY 12/17/18 12/12/21 Fluticasone Nasal [place] [Flonase 2 spr EA NOSTRIL DAILY 12/17/18 12/12/21 Nasal [place]] Gabapentin [Neurontin] 300 mg PO TID 12/17/18 12/12/21 Isosorbide Mononitrate ER [Imdur] 30 mg PO DAILY 12/17/18 12/12/21 Nitroglycerin Sl Tabs [Nitrostat] 0.4 mg SUBLINGUAL Q5M PRN 12/17/18 12/12/21 [place]-3 935mg 1 cap PO DAILY 12/17/18 12/12/21 Vit C/E/Zn/Coppr/Lutein/Zeaxan 1 cap PO BID 12/17/18 12/12/21 [Preservision Areds 2 Softgel] Metoprolol Succinate (ER) [Toprol 25 mg PO DAILY 12/09/21 12/12/21 Xl] Albuterol Sulfate [Proair 1 puff INHALATION Q6H PRN 12/10/21 12/12/21 Respiclick] Tiotropium 18 Mcg/Puff [Spiriva] 2 puff INHALATION DAILY 12/10/21 12/12/21 Previous Rx's Medication Instructions Recorded traMADol HCl [Ultram] 50 mg PO Q6H PRN #15 tab 12/12/21 Allergies Allergy/AdvReac Type Severity Reaction Status Date / Time acetaminophen [From Percocet] Allergy ITCHING Verified 03/18/24 15:53 AND NAUSEA hydrocodone [From [place]] Allergy Itching Verified 03/18/24 15:53 oxycodone [From Percocet] Allergy ITCHING Verified 03/18/24 15:53 AND NAUSEA Penicillins Allergy Rash/Hives Verified 03/18/24 15:53 codeine AdvReac Nausea & Verified 03/18/24 15:53 Vomiting Review of Systems ROS Statement: Those systems with pertinent positive or pertinent negative responses have been documented in the HPI. ROS Other: All systems not noted in ROS Statement are negative. Past Medical History Past Medical History: COPD, Osteoarthritis (OA) Additional Past Medical History / Comment(s): aneurysm History of Any Multi-Drug Resistant Organisms: None Reported Past Surgical History: Orthopedic Surgery Additional Past Surgical History / Comment(s): L hand, L foot, Past Psychological History: No Psychological Hx Reported Smoking Status: Former smoker Past Alcohol Use History: None Reported Past Drug Use History: Marijuana General Exam Limitations: no limitations General appearance: alert, in no apparent distress Head exam: Present: atraumatic, normocephalic, normal inspection Eye exam: Present: normal appearance, EOMI Neck exam: Present: normal inspection. Absent: meningismus Respiratory exam: Absent: respiratory distress Cardiovascular Exam: Present: regular rate Right Hip exam: Present: normal inspection, full ROM, tenderness Neurovascular tendon exam: Present: no vascular compromise Neurological exam: Present: alert, oriented X3 Psychiatric exam: Present: normal affect, normal mood Skin exam: Present: warm, dry Course Vital Signs 03/18/24 03/18/24 03/18/24 15:51 18:01 21:53 Temperature 98.3 F 98 F 98.0 F Pulse Rate 74 70 73 Respiratory 20 16 16 Rate Blood Pressure 153/91 133/74 123/72 O2 Sat by Pulse 96 97 97 Oximetry Medical Decision Making - Medical Decision Making Was pt. sent in by a medical professional or institution (, [facility]O, LINEN CHECKER, urgent care, hospital, or [place] health care facility...) When possible be specific @ -No Did you speak to anyone other than the patient for history (EMS, parent, family, police, friend...)? What history was obtained from this source @ -No Did you review nursing and triage notes (agree or disagree)? Why? @ -I reviewed and agree with nursing and triage notes Were old charts reviewed (outside hosp., previous admission, EMS record, old EKG, old radiological studies, urgent care reports/EKG's, [place] health care facility records)? Report findings @ -No old charts were reviewed Differential Diagnosis (chest pain, altered mental status, abdominal pain women, abdominal pain men, vaginal bleeding, weakness, fever, dyspnea, syncope, headache, dizziness, GI bleed, back pain, seizure, CVA, palpatations, mental health, musculoskeletal)? @ -Differential Musculoskeletal Muscular strain, contusion, ligament sprain, fracture, arthritis, septic arthritis, bursitis, cellulitis, muscle spasm, nerve compression, DVT, arterial occlusion, herpes zoster, electrolyte abnormality, tumor.... This is not meant to be in all inclusive list EKG interpreted by me (3pts min.). @ -As above X-rays interpreted by me (1pt min.). @ -X-ray shows no acute osseous abnormality of the right hip CT interpreted by me (1pt min.). @ -CT shows anterior right acetabular fracture essentially nondisplaced U/S interpreted by me (1pt. min.). @ -None done What testing was considered but not performed or refused? (CT, X-rays, U/S, labs)? Why? @ -None What meds were considered but not given or refused? Why? @ -None Did you discuss the management of the patient with other professionals (professionals i.e. , NIKKO, LINEN CHECKER, lab, RT, psych nurse, social professionals, campus security officer, teacher, fire information officer, caseworker protective services)? Give summary @ -Spoke with Dr. Shannon who states that the patient should be admitted under medicine as this is not a surgical case My attending Dr. Busby spoke with [facility] who accepts [facility] Was smoking cessation discussed for >3mins.? @ -No Was critical care preformed (if so, how long)? @ -No Were there social determinants of health that impacted care today? How? (Homelessness, low income, unemployed, alcoholism, drug addiction, transportation, low edu. Level, literacy, decrease access to med. care, long-term, rehab)? @ -No Was there de-escalation of care discussed even if they declined (Discuss DNR or withdrawal of care, Hospice)? DNR status @ -No What co-morbidities impacted this encounter? (DM, HTN, Smoking, COPD, CAD, Cancer, CVA, ARF, Chemo, Hep., AIDS, mental health diagnosis, sleep apnea, morbid obesity)? @ -None Was patient admitted / discharged? Hospital course, mention meds given and route, prescriptions, significant lab abnormalities, going to OR and other pertinent info. @ -73-year-old female presenting for evaluation after a fall onto the right hip today. No head injury. Initial x-rays negative for acute osseous process. Patient is unable to ambulate. CT was obtained which shows right anterior acetabular fracture. Patient still cannot ambulate, she states that she lives with her who is an alcoholic and cannot help take care of her. Patient will be admitted due to inability to ambulate. She is agreeable with this plan. I discussed this case with my attending Dr. Busby Undiagnosed new problem with uncertain prognosis? @ -No Drug Therapy requiring intensive monitoring for toxicity (Heparin, Nitro, Insulin, Cardizem)? @ -No Were any procedures done? @ -No Diagnosis/symptom? @ -Acetabular fracture Acute, or Chronic, or Acute on Chronic? @ -Acute Uncomplicated (without systemic symptoms) or Complicated (systemic symptoms)? @ -Complicated Side effects of treatment? @ -No Exacerbation, Progression, or Severe Exacerbation? @ -No Poses a threat to life or bodily function? How? (Chest pain, [place], [place], pneumonia, PE, COPD, DKA, ARF, appy, cholecystitis, CVA, Diverticulitis, Homicidal, Suicidal, threat to staff... and all critical care pts) @ -Yes, patient cannot function at this time and would be unsafe at home - Lab Data Result diagrams: 03/18/24 21:54 03/18/24 21:54 Disposition Clinical Impression: Acetabular fracture Disposition: ADMITTED IP TO THIS HOSP Condition: Fair Is patient prescribed a controlled substance at d/c from ED?: No Time of Disposition: 20:51
[2024-03-18] MEDS: IBUPROFEN 400 MG TAB PO STA (18:53)
[2024-03-18] MEDS: MORPHINE SULFATE 4 MG/ML SYRINGE IM STA (19:15)
[2024-03-18] MEDS: ONDANSETRON ODT 4 MG TAB PO STA (19:15)
--- NOTE | 2024-03-18 19:43 | CT ---
EXAMINATION TYPE: CT right hip DATE OF EXAM: 03/18/2024 6:41 PM COMPARISON: None. CLINICAL INDICATION: Female, 48 years old with history of headache, hx brain cancer, headache, hx bra in [place] Lung cancer screening, History of tobacco use. TECHNIQUE: Contrast used: mL of , (none if empty) Oral contrast used: (none if empty) FINDINGS: Axial images were obtained at 3 mm thick sections. Femoral head articulates with the acetabulum. The femur appears intact. Femoral neck is intact. Femoral head articulates with the acetabulum. Visualized In the sagittal plane there is an anterior acetabular fracture. This is essentially nondis placed. This extends towards the lateral aeration fascial ramus. No additional fractures evident. Three-D reconstructed images are reviewed. IMPRESSION: 1. ANTERIOR RIGHT ACETABULAR FRACTURE ESSENTIALLY NONDISPLACED. [facility], , 03/18/2024 7:41 PM
[2024-03-18] MEDS ORDERED: NALOXONE 0.4 MG/ML 1 ML VIAL IV PRN (20:51)
[2024-03-18 22:20] LABS: Basophils # (A) 0.1 k/uL (0-0.2); Basophils % (A) 0 %; Eosinophils # (A) 0.1 k/uL (0-0.7); Eosinophils % (A) 0 %; HCT 41.6 % (34.0-46.0); HGB 13.4 gm/dL (11.4-16.0); Lymphocytes % (A) 21 %; MCHC 32.2 g/dL (31.0-37.0); MCV 90.1 fL (80.0-100.0); Monocytes # (A) 0.9 k/uL (0-1.0); Monocytes % (A) 6 %; Neutrophils # (A) 10.2 k/uL (1.3-7.7); Neutrophils % (A) 71 %; Platelet Count 159 k/uL (150-450); RBC 4.62 m/uL (3.80-5.40); RDW 13.5 % (11.5-15.5); WBC 14.4 k/uL (3.8-10.6)
--- NOTE | 2024-03-18 22:22 | P.HPIM ---
History of Present Illness H&P Date: 03/18/24 Chief Complaint: Fall, hip pain History of present illness; Very pleasant 73-year-old female with COPD, not maintained on home O2, hypertension, hyperlipidemia, depression and osteoarthritis. Presents to the emergency department following a fall. Patient states that she was at home when she slipped on a wet, wooden walkway and fell on her right hip. Patient states that at that time she noted some tenderness and pain at the anterior right hip. Upon seeing the patient at the bedside she is currently resting comfortably, endorsing no pain at this time. Imaging: -Hip/pelvis x-ray showed no acute osseous abnormality of the right hip -Hip CT showed anterior right acetabular fracture essentially nondisplaced Vitals: -Blood pressure 133/74, heart rate 70, respiratory rate 16, SpO2 97% on room air Patient admitted to internal medicine service REVIEW OF SYSTEMS: CONSTITUTIONAL: No fever, no malaise, no fatigue. HEENT: No recent visual problems or hearing problems. Denied any sore throat. CARDIOVASCULAR: No chest pain, orthopnea, PND, no palpitations, no syncope. PULMONARY: No shortness of breath, no cough, no hemoptysis. GASTROINTESTINAL: No diarrhea, no nausea, no vomiting, no abdominal pain. NEUROLOGICAL: No headaches, no weakness, no numbness. HEMATOLOGICAL: Denies any bleeding or petechiae. GENITOURINARY: Denies any burning micturition, frequency, or urgency. MUSCULOSKELETAL/RHEUMATOLOGICAL: Denies any joint pain, swelling, or any muscle pain. ENDOCRINE: Denies any polyuria or polydipsia. The rest of the 14-point review of systems is negative. PHYSICAL EXAMINATION: GENERAL: The patient is alert and oriented x3, not in any acute distress. Well developed, well nourished. HEENT: No conjunctival pallor. Normocephalic, atraumatic. No pharyngeal erythema. No thyromegaly. CARDIOVASCULAR: S1 and S2 present. No murmurs, rubs, or gallops. PULMONARY: Chest is clear to auscultation, no wheezing or crackles. ABDOMEN: Soft, nontender, nondistended, normoactive bowel sounds. No palpable organomegaly. MUSCULOSKELETAL: No joint swelling or deformity. No bruising noted on the right hip, no tenderness to palpation at the time of examination. EXTREMITIES: No cyanosis, clubbing, or pedal edema. NEUROLOGICAL: Gross neurological examination did not reveal any focal deficits. SKIN: No rashes. Assessment and plan 73-year-old female with COPD and osteoarthritis presents to the emergency department following a fall. Patient is noted to have right acetabular fracture essentially nondisplaced noted on hip CT. Patient admitted to the internal medicine service. #Right acetabular fracture essentially nondisplaced -Hip/pelvis x-ray showed no acute osseous abnormality of the right hip -Hip CT showed anterior right acetabular fracture essentially nondisplaced -Patient given 4 mg IM morphine once in the emergency department -Continue with 4 mg IV morphine every 4 hours as needed -Motrin 400 mg once in the emergency department -Continue with 400 mg Motrin Q6H as needed -Orthopedic surgery consulted #COPD, not maintained on home O2 -Resume home Spiriva supplemental oxygen as needed #Hypertension -Resume home Toprol Xl 25 mg daily and Imdur 30 mg daily once verified by pharmacy #Hyperlipidemia -Resume home Ezetimibe 10 mg daily -Resume home Lipitor 40 mg daily #Depression -Resume home Celexa 40 mg daily CODE STATUS: Full code GI prohylaxis: Protonix 40 mg daily DVT prophylaxis: heparin sc 5000 units tid Dictation was produced using [employer] dictation software. please excuse any grammatical, word or spelling errors. Past Medical History Past Medical History: COPD, Osteoarthritis (OA) Additional Past Medical History / Comment(s): aneurysm History of Any Multi-Drug Resistant Organisms: None Reported Past Surgical History: Orthopedic Surgery Additional Past Surgical History / Comment(s): L hand, L foot, Past Psychological History: No Psychological Hx Reported Smoking Status: Former smoker Past Alcohol Use History: None Reported Past Drug Use History: Marijuana Medications and Allergies Home Medications Medication Instructions Recorded Confirmed Type Aspirin EC [Ecotrin Low Dose] 81 mg PO DAILY 12/17/18 12/12/21 History Atorvastatin [Lipitor] 40 mg PO DAILY 12/17/18 12/12/21 History Biotin [Biotin Disolve] 2,500 mcg PO DAILY 12/17/18 12/12/21 History Calcium Carbonate [Calcium] 600 mg PO BID 12/17/18 12/12/21 History Cholecalciferol (Vitamin D3) 2,000 unit PO DAILY 12/17/18 12/12/21 History [Vitamin D3] Citalopram Hydrobromide [CeleXA] 40 mg PO DAILY 12/17/18 12/12/21 History Ezetimibe [Zetia] 10 mg PO DAILY 12/17/18 12/12/21 History Fluticasone Nasal [place] [Flonase 2 spr EA NOSTRIL DAILY 12/17/18 12/12/21 History Nasal [place]] Gabapentin [Neurontin] 300 mg PO TID 12/17/18 12/12/21 History Isosorbide Mononitrate ER [Imdur] 30 mg PO DAILY 12/17/18 12/12/21 History Nitroglycerin Sl Tabs [Nitrostat] 0.4 mg SUBLINGUAL Q5M PRN 12/17/18 12/12/21 History Brandon-3 935mg 1 cap PO DAILY 12/17/18 12/12/21 History Vit C/E/Zn/Coppr/Lutein/Zeaxan 1 cap PO BID 12/17/18 12/12/21 History [Preservision Areds 2 Softgel] Metoprolol Succinate (ER) [Toprol 25 mg PO DAILY 12/09/21 12/12/21 History Xl] Albuterol Sulfate [Proair 1 puff INHALATION Q6H PRN 12/10/21 12/12/21 History Respiclick] Tiotropium 18 Mcg/Puff [Spiriva] 2 puff INHALATION DAILY 12/10/21 12/12/21 History traMADol HCl [Ultram] 50 mg PO Q6H PRN #15 tab 12/12/21 Rx Allergies Allergy/AdvReac Type Severity Reaction Status Date / Time acetaminophen [From Percocet] Allergy ITCHING Verified 03/18/24 15:53 AND NAUSEA hydrocodone [From [place]] Allergy Itching Verified 03/18/24 15:53 oxycodone [From Percocet] Allergy ITCHING Verified 03/18/24 15:53 AND NAUSEA Penicillins Allergy Rash/Hives Verified 03/18/24 15:53 codeine AdvReac Nausea & Verified 03/18/24 15:53 Vomiting Physical Exam Vitals: Vital Signs Temp Pulse Resp BP Pulse Ox 03/18/24 18:01 98 F 70 16 133/74 97 03/18/24 15:51 98.3 F 74 20 153/91 96 Intake and Output 03/18/24 03/18/2424 06:59 14:59 22:59 Other: Weight 70.307 kg Results CBC & Chem 7: 03/18/24 21:54 03/18/24 21:54 Assessment and Plan Assessment: I have seen and evaluated the patient today. I Discussed the case with the resident and agree with the resident's findings I edited the assessment and plan as necessary as documented in the resident's note.
[2024-03-18 22:30] LABS: ALT 31 U/L (4-34); African American GFR (CKD) >90 (>60 ml/min/1.73 sqM); Anion Gap 6 mmol/L; Blood Urea Nitrogen 14 mg/dL (7-17); Calcium 9.1 mg/dL (8.4-10.2); Carbon Dioxide 22 mmol/L (22-30); Chloride 109 mmol/L (98-107); Glucose 94 mg/dL (74-99); Non-African American GFR(CKD) 82 (>60 ml/min/1.73 sqM); Sodium 137 mmol/L (137-145); Total Bilirubin 1.6 mg/dL (0.2-1.3)
[2024-03-18 22:41] LABS: AST 46 U/L (14-36); Albumin 4.2 g/dL (3.5-5.0); Alkaline Phosphatase 48 U/L (38-126); Potassium 4.9 mmol/L (3.5-5.1); Total Protein 6.4 g/dL (6.3-8.2)
[2024-03-19] MEDS: MORPHINE SULFATE 4 MG/ML SYRINGE IV PRN (01:38)
[2024-03-19] MEDS: EZETIMIBE 10 MG TAB PO SCH (07:43)
[2024-03-19] MEDS: CITALOPRAM HYDROBROMIDE 20 MG TAB PO SCH (07:43)
[2024-03-19] MEDS: ATORVASTATIN 40 MG TAB PO SCH (07:43)
[2024-03-19] MEDS: PANTOPRAZOLE 40 MG TABLET PO SCH (07:43)
[2024-03-19] MEDS ORDERED: CYCLOBENZAPRINE 5 MG TAB PO PRN (12:10)
--- NOTE | 2024-03-19 12:18 | P.CNOR ---
History of Present Illness - [facility] Consult date: 03/19/24 Consult reason: fracture (Nondisplaced right acetabular fracture) History of present illness: Patient is a 73-year-old female who presented to [facility] yesterday after falling after slipping on some wood and landing on her right hip at home on 03/18/2024. After being brought to the hospital, multiple images and lab tests were done. Noncontrast hip CT demonstrated a nondisplaced right acetabular fracture. The ER staff did speak with my attending Dr. Archana Mulligan regarding this patient. Patient was admitted under internal medicine with our team on consult for evaluation. Patient was evaluated today at bedside, she is resting comfortably in bed. She states most pain is when she attempts to weight-bear, she is try to stay off the leg at this time. She has been utilizing the bedside commode. She has no left lower extremity pain at this time. She denies any bilateral upper extremity pain. She denies any cervical, thoracic or lumbar pain. Patient denies any headaches, lightheadedness, chest pain or shortness of breath. Review of Systems Constitutional: Reports as per HPI Past Medical History Past Medical History: COPD, Osteoarthritis (OA) Additional Past Medical History / Comment(s): aneurysm History of Any Multi-Drug Resistant Organisms: None Reported Past Surgical History: Orthopedic Surgery Additional Past Surgical History / Comment(s): L hand, L foot, Past Anesthesia/Blood Transfusion Reactions: No Reported Reaction Past Psychological History: No Psychological Hx Reported Smoking Status: Former smoker Past Alcohol Use History: None Reported Past Drug Use History: Marijuana Medications and Allergies Home Medications Medication Instructions Recorded Confirmed Type Atorvastatin [Lipitor] 40 mg PO DAILY 12/17/18 03/19/24 History Citalopram Hydrobromide [CeleXA] 40 mg PO DAILY 12/17/18 03/19/24 History Ezetimibe [Zetia] 10 mg PO DAILY 12/17/18 03/19/24 History Gabapentin [Neurontin] 300 mg PO TID 12/17/18 03/19/24 History Isosorbide Mononitrate ER [Imdur] 30 mg PO DAILY 12/17/18 03/19/24 History Metoprolol Succinate (ER) [Toprol 25 mg PO DAILY 12/09/21 03/19/24 History Xl] Fluticasone Propion/Salmeterol 1 puff INHALATION RT-BID 03/19/24 03/19/24 History [Fluticasone-Salmeterol 250-50] Ibandronate Sodium [Boniva] 150 mg PO QMONTHLY 03/19/24 03/19/24 History Omeprazole [PriLOSEC] 20 mg PO DAILY 03/19/24 03/19/24 History Tiotropium 2.5 Mcg/Puff [Spiriva 1 puff INHALATION RT-DAILY 03/19/24 03/19/24 History Respimat 2.5 Mcg] Allergies Allergy/AdvReac Type Severity Reaction Status Date / Time acetaminophen [From Percocet] Allergy ITCHING Verified 03/19/24 10:25 AND NAUSEA hydrocodone [From [place]] Allergy Itching Verified 03/19/24 10:25 oxycodone [From Percocet] Allergy ITCHING Verified 03/19/24 10:25 AND NAUSEA Penicillins Allergy Rash/Hives Verified 03/19/24 10:25 codeine AdvReac Nausea & Verified 03/19/24 10:25 Vomiting Physical Examination Right lower extremity: No open lesions, sores, areas of erythema or soft tissue swelling present. alignment is maintained and similar to the contralateral side, no obvious shortening or rotation noted Patient demonstrates no tenderness with palpation throughout the extremity, this to include the proximal femur, knee, lower leg, foot and ankle Range of motion is intact with aggressive plantarflexion, dorsiflexion, EHL, FHL, knee flexion, knee extension. Hip flexion does reproduce minor discomfort in the groin. Patient can straight leg raise, this also does reproduce some discomfort. Logroll reproduces minor discomfort Strength testing was not assessed today at bedside Calf soft, no tenderness with palpation Sensory exam to light touch is intact throughout the extremity, dorsalis pedis pulses 2+ Results - Labs Labs: Abnormal Lab Results - Last 24 Hours (Table) 03/18/24 03/18/24 Range/Units 21:54 21:54 WBC 14.4 H (3.8-10.6) k/uL Neutrophils # 10.2 H (1.3-7.7) k/uL Chloride 109 H (98-107) mmol/L Total Bilirubin 1.6 H (0.2-1.3) mg/dL AST 46 H (14-36) U/L H & H 03/18/24 Range/Units 21:54 Hgb 13.4 (11.4-16.0) gm/dL Hct 41.6 (34.0-46.0) % Result Diagrams: 03/18/24 21:54 03/18/24 21:54 - Diagnostic results Hip x-ray: report reviewed, image reviewed Hip CT: report reviewed, image reviewed Assessment and Plan Assessment: Right hip pain Nondisplaced right acetabular fracture Status post fall from standing Plan: Imaging: AP pelvis along with right hip x-rays along with noncontrast right hip CT were reviewed, this to include images and reports. Nondisplaced right acetabular fracture is noted. No other obvious osseous abnormalities. Plan: I was able to discuss the case, this to include physical exam findings and imaging studies my attending Dr. Shannon. No orthopedic surgical intervention is recommended at this time Conservative measures to include Tylenol versus anti-inflammatories versus low- dose muscle relaxer for discomfort. Toe-touch weightbearing, recommend use of a walker at all times PT/OT evaluation GI DVT prophylaxis per primary medical service Medical recommendations appreciated Discharge planning: Depending on patient's pain control is and if she can ambulate with the assistance of a walker hopeful discharge to home on 03/20/2024 Time with Patient: Less than 30
--- NOTE | 2024-03-19 16:15 | P.PN ---
Subjective Progress Note Date: 03/19/24 Pt reports hip is still sore today. Orthopedic consultation appreciated. Gen: In NAD, non-toxic HEENT: normocephalic, atraumatic, hearing acuity is intant, mucous membranes moist CVS: perfusing all extremities well, no pitting edema, Respiratory: symmetric chest expansion, no accessory muscle use, GI: soft, NTTP, ND, : no suprapubic tenderness, no CVA tenderness MSK/Derm: no rashes, cyanosis Neuro: CN II-XII intact, no motor weakness, Psych: cooperative, euthymic mood, judgment and insight is intact Hospital course: Very pleasant 73-year-old female with COPD, not maintained on home O2, h ypertension, hyperlipidemia, depression and osteoarthritis. Presented to the emergency department following a fall. Imaging: -Hip/pelvis x-ray showed no acute osseous abnormality of the right hip -Hip CT showed anterior right acetabular fracture essentially nondisplaced Assessment and plan #Right acetabular fracture essentially nondisplaced -Hip/pelvis x-ray showed no acute osseous abnormality of the right hip -Hip CT showed anterior right acetabular fracture essentially nondisplaced -Patient given 4 mg IM morphine once in the emergency department -Continue with 4 mg IV morphine every 4 hours as needed -Motrin 400 mg once in the emergency department -Continue with 400 mg Motrin Q6H as needed -Orthopedic surgery consulted -Physical therapy/Occupational Therapy consulted #COPD, not maintained on home O2 -Resume home Spiriva supplemental oxygen as needed #Hypertension -Resume home Toprol Xl 25 mg daily and Imdur 30 mg daily once verified by pharmacy #Hyperlipidemia -Resume home Ezetimibe 10 mg daily -Resume home Lipitor 40 mg daily #Depression -Resume home Celexa 40 mg daily CODE STATUS: Full code GI prohylaxis: Protonix 40 mg daily DVT prophylaxis: heparin sc 5000 units tid Objective - Vital Signs Vital signs: Vital Signs Temp 98.3 F 03/19/24 08:25 Pulse 69 03/19/24 08:25 Resp 20 03/19/24 08:25 BP 137/83 03/19/24 08:25 Pulse Ox 93 L 03/19/24 08:25 FiO2 Intake & Output 03/18/24 03/19/24 03/19/24 18:59 06:59 18:59 Weight 70.307 kg 70.307 kg Other: Voiding Method Toilet # Voids 1 1 - Labs CBC & Chem 7: 03/18/24 21:54 03/18/24 21:54 Labs: Abnormal Lab Results - Last 24 Hours (Table) 03/18/24 03/18/24 Range/Units 21:54 21:54 WBC 14.4 H (3.8-10.6) k/uL Neutrophils # 10.2 H (1.3-7.7) k/uL Chloride 109 H (98-107) mmol/L Total Bilirubin 1.6 H (0.2-1.3) mg/dL AST 46 H (14-36) U/L
[2024-03-20] MEDS: ASPIRIN 325 MG TAB PO SCH (10:23)
[2024-03-20] MEDS: GABAPENTIN 300 MG CAP PO SCH (10:23)
--- NOTE | 2024-03-20 10:51 | P.PN ---
Subjective Progress Note Date: 03/20/24 Pt reports hip is still sore today. Orthopedic consultation appreciated. Gen: In NAD, non-toxic HEENT: normocephalic, atraumatic, hearing acuity is intant, mucous membranes moist CVS: perfusing all extremities well, no pitting edema, Respiratory: symmetric chest expansion, no accessory muscle use, GI: soft, NTTP, ND, : no suprapubic tenderness, no CVA tenderness MSK/Derm: no rashes, cyanosis Neuro: CN II-XII intact, no motor weakness, Psych: cooperative, euthymic mood, judgment and insight is intact Hospital course: Very pleasant 73-year-old female with COPD, not maintained on home O2, h ypertension, hyperlipidemia, depression and osteoarthritis. Presented to the emergency department following a fall. Imaging: -Hip/pelvis x-ray showed no acute osseous abnormality of the right hip -Hip CT showed anterior right acetabular fracture essentially nondisplaced Assessment and plan #Right acetabular fracture essentially nondisplaced -Hip/pelvis x-ray showed no acute osseous abnormality of the right hip -Hip CT showed anterior right acetabular fracture essentially nondisplaced -Patient given 4 mg IM morphine once in the emergency department -Continue with 4 mg IV morphine every 4 hours as needed -Motrin 400 mg once in the emergency department -Continue with 400 mg Motrin Q6H as needed -Orthopedic surgery consulted -Physical therapy/Occupational Therapy consulted -Add DVT PPx with ASA 325mg BID #COPD, not maintained on home O2 -Resume home Spiriva supplemental oxygen as needed #Hypertension -Resume home Toprol Xl 25 mg daily and Imdur 30 mg daily once verified by pharmacy #Hyperlipidemia -Resume home Ezetimibe 10 mg daily -Resume home Lipitor 40 mg daily #Depression -Resume home Celexa 40 mg daily CODE STATUS: Full code GI prohylaxis: Protonix 40 mg daily DVT prophylaxis: ASA as above Objective - Vital Signs Vital signs: Vital Signs Temp 98.6 F 03/20/24 07:30 Pulse 76 03/20/24 07:30 Resp 18 03/20/24 07:30 BP 129/84 03/20/24 07:30 Pulse Ox 94 L 03/20/24 07:30 FiO2 Intake & Output 03/19/24 03/20/24 03/20/24 18:59 06:59 18:59 Intake Total 240 Balance 240 Intake: Oral 240 Other: Voiding Method Toilet Toilet # Voids 1 1 - Labs CBC & Chem 7: 03/18/24 21:54 03/18/24 21:54
--- NOTE | 2024-03-20 12:32 | P.PN ---
Subjective Progress Note Date: 03/20/24 Principal diagnosis: Right hip pain, nondisplaced right acetabular fracture Patient evaluated at bedside, she is resting comfortably. She continues to have discomfort more in the right hip region with ambulation. Internal medicine would like the patient to stay an additional night to work with physical therapy on 03/21/2024. Patient denies headaches, lightheadedness, chest pain or shortness of breath Objective - Vital Signs Vital signs: Vital Signs Temp 98.6 F 03/20/24 07:30 Pulse 76 03/20/24 07:30 Resp 18 03/20/24 07:30 BP 129/84 03/20/24 07:30 Pulse Ox 94 L 03/20/24 07:30 FiO2 Intake & Output 03/19/24 03/20/24 03/20/24 18:59 06:59 18:59 Intake Total 240 Balance 240 Intake: Oral 240 Other: Voiding Method Toilet Toilet Bedside Commode # Voids 1 1 - Exam Right lower extremity: No open lesions, sores, areas of erythema or soft tissue swelling present. alignment is maintained and similar to the contralateral side, no obvious shortening or rotation noted Patient demonstrates no tenderness with palpation throughout the extremity, this to include the proximal femur, knee, lower leg, foot and ankle Range of motion is intact with aggressive plantarflexion, dorsiflexion, EHL, FHL, knee flexion, knee extension. Hip flexion does reproduce minor discomfort in the groin. Patient can straight leg raise, this also does reproduce some discomfort. Logroll reproduces minor discomfort Strength testing was not assessed today at bedside Calf soft, no tenderness with palpation Sensory exam to light touch is intact throughout the extremity, dorsalis pedis pulses 2+ - Labs CBC & Chem 7: 03/18/24 21:54 03/18/24 21:54 Assessment and Plan Assessment: Right hip pain Nondisplaced right acetabular fracture Status post fall from standing Plan: Plan: Continue conservative measures to include Tylenol versus anti-inflammatories v ersus low-dose muscle relaxer for discomfort. Toe-touch weightbearing, recommend use of a walker at all times PT/OT evaluation GI DVT prophylaxis per primary medical service Medical recommendations appreciated Discharge planning: orthopedically patient remained stable, recommend follow-up in the outpatient setting in 2 weeks for x-ray and clinical evaluation Time with Patient: Less than 30
[2024-03-20] MEDS: IBUPROFEN 400 MG TAB PO PRN (16:25)
[2024-03-21 07:41] VITALS: RESP 17
[2024-03-21 08:43] LABS: Basophils # (A) 0.06 X 10*3/uL (0.00-0.10); Basophils % (A) 0.6 %; Eosinophils # (A) 0.26 X 10*3/uL (0.04-0.35); Eosinophils % (A) 2.5 %; HCT 45.5 % (37.2-46.3); HGB 14.1 g/dL (12.0-15.0); Lymphocytes # (A) 2.55 X 10*3/uL (0.90-5.00); Lymphocytes % (A) 24.5 %; MCH 28.5 pg (27.0-32.0); MCV 91.9 FL (80.0-97.0); Mean Platelet Volume 11.6 FL (9.5-12.2); Monocytes # (A) 1.07 X 10*3/uL (0.20-1.00); Monocytes % (A) 10.3 %; NRBC Per 100 WBC 0 X 10*3/uL (0.00-0.01); Neutrophils # (A) 6.42 X 10*3/uL (1.80-7.70); Neutrophils % (A) 61.5 %; Platelet Count 153 X 10*3/uL (140-440); RBC 4.95 X 10*6/uL (4.10-5.20); RDW 13.3 % (11.5-14.5); WBC 10.42 X 10*3/uL (4.50-10.00)
[2024-03-21 08:46] LABS: BUN/Creat Ratio 23.86 Ratio (12.00-20.00); Blood Urea Nitrogen 16.7 mg/dL (9.0-27.0); Calcium 8.7 mg/dL (8.7-10.3); Carbon Dioxide 23.1 mmol/L (21.6-31.8); Chloride 107 mmol/L (96-109); Glucose 108 mg/dL (70-110); Magnesium 1.9 mg/dL (1.5-2.4); Potassium 3.9 mmol/L (3.5-5.5); Sodium 141 mmol/L (135-145)
--- NOTE | 2024-03-21 09:29 | XR ---
EXAMINATION TYPE: XR shoulder limited RT DATE OF EXAM: 03/21/2024 9:17 AM COMPARISON: None CLINICAL INDICATION: Female, 73 years old with history of R shoulder pain/Fall; [facility] TECHNIQUE: XR shoulder limited RT; examined in AP, internally rotated and scapular Y projections. FINDINGS: No evidence of acute osseous pathology, joint dislocation, or soft tissue swelling. The remaining po rtions of the visualized chest are unremarkable. Degeneration changes of the acromion, distal clavic le with osteophyte formation. There is osteophyte formation of the glenoid and humeral head. There is joint space narrowing of glenohumeral joint. IMPRESSION: 1. No acute osseous pathology. 2. Mild shoulder osteoarthrosis. [facility], , 03/21/2024 9:26 AM
[2024-03-21 14:14] VITALS: BP 110/74; PULSE 83; TEMP 98.1
--- NOTE | 2024-03-21 15:15 | P.DS ---
Providers Date of admission: 03/18/24 20:49 Expected date of discharge: 03/21/24 Attending physician: Jack Palomino MD Consults: 03/18/24 20:51 Consult Physician Urgent Consulting Provider: Jose C Shannon Consult Reason/Comments: Acetabular fracture Do you want consulting provider notified?: Already Contacted [facility] Course: #Right acetabular fracture essentially nondisplaced #COPD, not maintained on home O2 #Hypertension #Hyperlipidemia #Depression Gen: In NAD, non-toxic HEENT: normocephalic, atraumatic, hearing acuity is intant, mucous membranes moist CVS: perfusing all extremities well, no pitting edema, Respiratory: symmetric chest expansion, no accessory muscle use, GI: soft, NTTP, ND, : no suprapubic tenderness, no CVA tenderness MSK/Derm: no rashes, cyanosis Neuro: CN II-XII intact, no motor weakness, Psych: cooperative, euthymic mood, judgment and insight is intact Hospital course: Very pleasant 73-year-old female with COPD, not maintained on home O2, hypertension, hyperlipidemia, depression and osteoarthritis. Presented to the emergency department following a fall. Patient was found to have a subcapsular fracture as identified on CT scan of the hip despite hip x-ray being negative. Patient also reported some shoulder pain and had a shoulder x-ray which did not demonstrate any pathology but did show some mild shoulder osteoarthrosis. Patient was seen and evaluated by orthopedic surgery, who felt conservative management was indicated with pain control and physical therapy. Patient was identified as a candidate for rehab and was discharged to [facility]. Patient did not require narcotics for pain control. Imaging: -Hip/pelvis x-ray showed no acute osseous abnormality of the right hip -Hip CT showed anterior right acetabular fracture essentially nondisplaced I saw and evaluated the patient during the trevino and critical portions of this encounter, and discussed the case in detail with the resident author of this note, I agree with the Assessment and Plan, and my changes, if any, are highlighted in blue. Patient Condition at Discharge: Fair Plan - Discharge Summary Discharge Rx Participant: Yes New Discharge Prescriptions: New Cyclobenzaprine [Flexeril] 5 mg PO BID PRN #6 tab PRN Reason: Muscle Spasm Aspirin 325 mg PO BID #60 tab Ibuprofen [Motrin] 400 mg PO Q6HR PRN tab PRN Reason: Mild Pain Or Fever > 100.5 Continue Ezetimibe [Zetia] 10 mg PO DAILY Citalopram Hydrobromide [CeleXA] 40 mg PO DAILY Atorvastatin [Lipitor] 40 mg PO DAILY Tiotropium 2.5 Mcg/Puff [Spiriva Respimat 2.5 Mcg] 1 puff INHALATION RT-DAILY Omeprazole [PriLOSEC] 20 mg PO DAILY Ibandronate Sodium [Boniva] 150 mg PO QMONTHLY Fluticasone Propion/Salmeterol [Fluticasone-Salmeterol 250-50] 1 puff INHALATION RT-BID Gabapentin [Neurontin] 300 mg PO TID #9 cap Discontinued Isosorbide Mononitrate ER [Imdur] 30 mg PO DAILY Metoprolol Succinate (ER) [Toprol Xl] 25 mg PO DAILY Discharge Medication List Atorvastatin [Lipitor] 40 mg PO DAILY 12/17/18 [History] Citalopram Hydrobromide [CeleXA] 40 mg PO DAILY 12/17/18 [History] Ezetimibe [Zetia] 10 mg PO DAILY 12/17/18 [History] Fluticasone Propion/Salmeterol [Fluticasone-Salmeterol 250-50] 1 puff INHALATION RT-BID 03/19/24 [History] Ibandronate Sodium [Boniva] 150 mg PO QMONTHLY 03/19/24 [History] Omeprazole [PriLOSEC] 20 mg PO DAILY 03/19/24 [History] Tiotropium 2.5 Mcg/Puff [Spiriva Respimat 2.5 Mcg] 1 puff INHALATION RT-DAILY 03/19/24 [History] Aspirin 325 mg PO BID #60 tab 03/21/24 [Rx] Cyclobenzaprine [Flexeril] 5 mg PO BID PRN #6 tab 03/21/24 [Rx] Gabapentin [Neurontin] 300 mg PO TID #9 cap 03/21/24 [Rx] Ibuprofen [Motrin] 400 mg PO Q6HR PRN tab 03/21/24 [Rx] Follow up Appointment(s)/Referral(s): Martin Chase PAC [PHYSICIAN SERVICES ENGINEER] - 2 Weeks [facility] [place], [NON-STAFF] - As Needed Alvarado Thompson DO [Primary Care Provider] - 1-2 days Activity/Diet/Wound Care/Special Instructions: Orthopedic discharge instructions: 1. Toe-touch weightbearing right lower extremity 2. Utilize walker at all times 3. Tylenol and NSAIDs as needed 4. Plan for follow-up with advanced orthopedics in 2 weeks for recheck Discharge Disposition: TRANSFER TO SNF/ECF
== END 2024-03-21 16:43 ==
LOC: EC 15:46 → 4SSUR 20:49
PROVIDERS: ADMIT Internal Medicine; ATTEND Internal Medicine
DX: S32.401A Unspecified fracture of right acetabulum, initial encounter for closed fracture (principal); W01.0XXA Fall on same level from slipping, tripping and stumbling without subsequent striking against object, initial encounter; M19.011 Primary osteoarthritis, right shoulder; M81.0 Age-related osteoporosis without current pathological fracture; J44.9 Chronic obstructive pulmonary disease, unspecified; I10 Essential (primary) hypertension; E78.5 Hyperlipidemia, unspecified; F32.A Depression, unspecified; Z79.82 Long term (current) use of aspirin; Z79.899 Other long term (current) drug therapy; Z87.891 Personal history of nicotine dependence
CPT/HCPCS: 96376; 96374; 99285; 93005; 97161; 97166; 80053; 80048; 83735; 85025 ×2; 73502; 73020; 73700; G0378 ×4; J2270